=== PATIENT | male | born 1990 | race Hispanic/Latino ===

== ENCOUNTER 2024-11-16 19:15 | Emergency (ER) | payer SELFPAY ==
[2024-11-16] MEDS ORDERED: Ketorolac Tromethamine 30 MG (1 mL) VIAL ONE (20:04)
[2024-11-16] MEDS ORDERED: HYDROcodone/Acetaminophen 10/325 mg Tablet ONE (20:04)
== END 2024-11-16 20:28 | disposition home or self-care (01) ==
LOC: ERS 19:15
DX: S42.001A Fracture of unspecified part of right clavicle, initial encounter for closed fracture (principal); V18.0XXA Pedal cycle driver injured in noncollision transport accident in nontraffic accident, initial encounter; Y93.89 Activity, other specified
CPT/HCPCS: 71045; 96372; J1885